=== PATIENT | male | born 1950 | race Hispanic/Latino ===

== ENCOUNTER 2020-06-03 05:57 | Inpatient (IN) | payer BC, MEDICARE ==
[2020-06-03] MEDS ORDERED: Dexamethasone 10 MG/ML VIAL ONE (06:36)
[2020-06-03 07:09] LABS: ALT (SGPT) 86 U/L (8-55); AST (SGOT) 30 U/L (5-34); Albumin 3.2 g/dL (3.4-4.8); Alkaline Phosphatase 72 U/L (40-110); Anion Gap 15 mmol/L (10-20); BUN (Urea Nitrogen) 20 mg/dL (8.4-25.7); Bilirubin, Total 0.7 mg/dL (0.2-1.2); Calc. Creatinine Clearance 0 mL/min (70-130); Calcium 8.5 mg/dL (7.8-10.44); Carbon Dioxide 22 mmol/L (23-31); Chloride 102 mmol/L (98-107); Globulin 3.6 g/dL (2.4-3.5); Glucose 122 mg/dL (80-115); Potassium 4.2 mmol/L (3.5-5.1); Protein, Total 6.8 g/dL (5.8-8.1); Sodium 135 mmol/L (136-145)
[2020-06-03 07:17] LABS: #Eosinphils 0.1 thou/uL (0.0-0.7); #Lymphocytes 1.7 thou/uL (1.20-3.40); #Monocytes 1.2 thou/uL (0.11-0.59); #Neutrophils 7.3 thou/uL (1.40-6.50); %Basophils 0.1 % (0.0-1.0); %Eosinophils 1.1 % (0.0-10.0); %Lymphocytes 16.5 % (21.0-51.0); %Monocytes 11.9 % (0.0-10.0); %Neutrophils 70.5 % (42.0-75.0); Hemoglobin 15.7 g/dL (14.0-18.0); Mean Corpuscular HGB CONC 32.3 g/dL (32.0-36.0); Mean Corpuscular Hemoglobin 27.4 pg (27.0-31.0); Mean Corpuscular Volume 84.9 fL (78.0-98.0); Mean Platelet Volume 7.6 fL (7.4-10.4); Platelet Count 543 thou/uL (130-400); RBC Distribution Width 12.2 % (11.5-14.5); Red Blood Cell (RBC) Count 5.71 mill/uL (4.70-6.10); White Blood Cell (WBC) Count 10.4 thou/uL (4.8-10.8)
[2020-06-03] MEDS ORDERED: Senokot S 8.6-50 MG TAB PO PRN (08:03)
--- NOTE | 2020-06-03 08:12 | CT ---
CT ANGIOGRAM THORAX WITH CONTRAST: (CTA pulmonary angiogram) DATE: 06/03/2020 HISTORY: 69-year-old COVID-19 positive male with dyspnea and hypoxemia TECHNIQUE: IV injection of iodinated contrast. Scan acquisition timing attempted to coincide with iodinated contrast bolus reaching maximal density in pulmonary arteries. 3-D MIP reconstructions. FINDINGS: Numerous multifocal patchy infiltrates both centrally and peripherally throughout bilateral upper lob es, lower lobes, and right middle lobe, mostly consolidative. No pleural effusion or pneumothorax. No cardiomegaly or pericardial effusion. Tortuosity and ectasia of thoracic aorta. Not enough contrast in the aorta to evaluate for aortic dis section. Very good opacification of pulmonary arteries. No thrombus identified in pulmonary arteries. Scattered minimally enlarged mediastinal lymph nodes. IMPRESSION: 1) moderately severe multifocal patchy infiltrates throughout all lung zones: Evidence for pneumonia, possibly COVID-19 pneumonia. 2) no evidence of pulmonary thromboembolism.
[2020-06-03] MEDS ORDERED: Enoxaparin Sodium 40 MG/0.4 ML SYRINGE SC SCH (09:00)
--- NOTE | 2020-06-03 10:06 | RAD ---
CHEST 1 VIEW: Date: 06/03/2020 INDICATION: Shortness of breath. History of COVID-positive diagnosis. COMPARISON: Prior exam dated 10/11/2017. FINDINGS: There is air space opacity within both lungs suspicious for pneumonia. No pleural effusion or pneumot horax is evident. No acute osseous abnormality is evident. Heart size is normal appearing. IMPRESSION: Bilateral pneumonia. POS: BH
--- NOTE | 2020-06-03 10:25 | PDOC.HHP ---
Hospitalist HPI - History of Present Illness Dyspnea History of Present Illness: 69M presents to the ED for acute dyspnea when he got up to use the bathroom. Reports having covid-19 symptoms for about 10 days but was just tested 2 days ago and was positive. Was initially hypoxic when he arrived to the ED, with 02 sats in the upper 80's. Currently 94% on 2L NC. Was worked up in the ED for a PE which CTA was negative for PE but showed bilateral pneumonia, most likely covid related. Will be admitted to medical for further management. ED Course: Ferritin: 2314, CRP 8.07, platelet 543, NA 135, ALT 85... otherwise labs WNL; CTA with multifocal infiltrates throughout lung zones. Hospitalist ROS - Review of Systems Constitutional: reports: chills, malaise Eyes: denies: pain, vision change, conjunctivae inflammation, eyelid inflammation, redness, other ENT: denies: ear pain, ear discharge, nose pain, nose discharge, nose congestion, mouth pain, mouth swelling, throat pain, throat swelling, other Respiratory: reports: cough, shortness of breath, SOB with excertion Cardiovascular: denies: chest pain, palpitations, orthopnea, paroxysmal noc. dyspnea, edema, light headedness, other Gastrointestinal: reports: nausea Genitourinary: denies: dysuria, frequency, incontinence, hematuria, retention, other Musculoskeletal: denies: neck pain, shoulder pain, arm pain, back pain, hand pain, leg pain, foot pain, other Skin: denies: rash, lesions, donny, bruising, other Neurological: denies: weakness, numbness, incoordination, change in speech, confusion, seizures, other - Medication Medications: Losartan 25mg po daily Zofran 4mg po q8h PRN Hospitalist History - Past Medical History Cardiac: reports: HTN - Social History Smoking Status: Never smoker Alcohol: reports: None Drugs: reports: none Living Situation: With Family Activity level: independent ambulation - Exam General Appearance: NAD, awake alert Eye: PERRL, anicteric sclera ENT: normocephalic atraumatic Neck: supple, no JVD Heart: RRR, normal peripheral pulses Respiratory: normal chest expansion Respiratory - other findings: decreased breath sounds bilaterally Gastrointestinal: soft, non-tender Extremities: no cyanosis, no clubbing Skin: normal turgor Neurological: cranial nerve grossly intact Musculoskeletal: normal tone Psychiatric: normal affect, A&O x 3 Hospitalist Results - Labs Result Diagrams: 06/03/20 06:23 06/03/20 06:23 Lab results: WBC 10.4 thou/uL (4.8-10.8) 06/03/20 06:23 Hgb 15.7 g/dL (14.0-18.0) 06/03/20 06:23 Hct 48.5 % (42.0-52.0) 06/03/20 06:23 MCV 84.9 fL (78.0-98.0) 06/03/20 06:23 Plt Count 543 thou/uL (130-400) H 06/03/20 06:23 Neutrophils % 70.5 % (42.0-75.0) 06/03/20 06:23 Sodium 135 mmol/L (136-145) L 06/03/20 06:23 Potassium 4.2 mmol/L (3.5-5.1) 06/03/20 06:23 Chloride 102 mmol/L (98-107) 06/03/20 06:23 Carbon Dioxide 22 mmol/L (23-31) L 06/03/20 06:23 BUN 20 mg/dL (8.4-25.7) 06/03/20 06:23 Creatinine 0.86 mg/dL (0.7-1.3) 06/03/20 06:23 Glucose 122 mg/dL (80-115) H 06/03/20 06:23 Calcium 8.5 mg/dL (7.8-10.44) 06/03/20 06:23 Total Bilirubin 0.7 mg/dL (0.2-1.2) 06/03/20 06:23 AST 30 U/L (5-34) 06/03/20 06:23 ALT 86 U/L (8-55) H 06/03/20 06:23 Alkaline Phosphatase 72 U/L (40-110) 06/03/20 06:23 Troponin I 0.018 ng/mL (< 0.028) 06/03/20 06:23 C-Reactive Protein 8.07 mg/dL (= or < 0.5) H 06/03/20 06:23 Serum Total Protein 6.8 g/dL (5.8-8.1) 06/03/20 06:23 Albumin 3.2 g/dL (3.4-4.8) L 06/03/20 06:23 Hospitalist H&P A/P - Problem (1) COVID-19 determined by clinical diagnostic criteria Code(s): U07.1 - COVID-19 Status: Acute (2) Pneumonia due to 2019 novel coronavirus Code(s): U07.1 - COVID-19; J12.89 - OTHER VIRAL PNEUMONIA Status: Acute (3) Hypertension Code(s): I10 - ESSENTIAL (PRIMARY) HYPERTENSION Status: Acute (4) MARTINEZ (dyspnea on exertion) Code(s): R06.00 - DYSPNEA, UNSPECIFIED Status: Acute - Plan Plan: #Covid 19 Pneumonia Supplemental O2 as needed to keep Sats above 92% Decadron po 6mg daily Albuterol inhaler q4h as needed Remdesivir per pharmacy Lovenox 40mg BID #HTN - will restart home medications once reconciled BP is currently 125/87 DVT prevention with Lovenox; PUD prevention with pepcid 20mg bid Case discussed with Dr. Chan; agrees with plan.
[2020-06-03] MEDS ORDERED: Iopamidol-370 76% 500 ML 1 ML ONE (12:46)
[2020-06-03 17:10] VITALS: BMI 35.2
[2020-06-03] MEDS ORDERED: Albuterol 200 PUFF (6.7GM INHALER) INH PRN (17:56)
[2020-06-03] MEDS: Famotidine 20 MG TAB PO SCH ×2 (17:59→19:43)
[2020-06-03] MEDS ORDERED: REMDESIVIR (EUA) 200 MG in Sodium Chloride 0.9% 250 ML 210 ML IV SCH (18:00)
[2020-06-03 18:35] LABS: Bilirubin Negative (Negative); Blood, Urine Negative (Negative); Clarity Clear (Clear); Glucose, Urine (Dipstick) 30 mg/dL (Negative); Ketone, Urine Negative (Negative); Leukocyte Negative Leu/uL (Negative); Nitrite Negative (Negative); Protein, Urine (Dipstick) Negative (Neg-Trace); Specific Gravity, Urine 1.031 (1.002-1.036); Urobilinogen Normal mg/dL (Less than 2); pH, Urine 5.5 (5.0-9.0)
[2020-06-03] MEDS: Enoxaparin Sodium 40 MG/0.4 ML SYRINGE SC SCH (19:43)
[2020-06-04 06:42] LABS: #Lymphocytes 1.8 thou/uL (1.20-3.40); #Monocytes 1.4 thou/uL (0.11-0.59); #Neutrophils 8.2 thou/uL (1.40-6.50); %Basophils 0.2 % (0.0-1.0); %Eosinophils 0.4 % (0.0-10.0); %Lymphocytes 15.6 % (21.0-51.0); %Monocytes 11.9 % (0.0-10.0); %Neutrophils 71.9 % (42.0-75.0); Hemoglobin 14.6 g/dL (14.0-18.0); Mean Corpuscular HGB CONC 32.6 g/dL (32.0-36.0); Mean Corpuscular Hemoglobin 27.8 pg (27.0-31.0); Mean Corpuscular Volume 85.3 fL (78.0-98.0); Mean Platelet Volume 7.4 fL (7.4-10.4); Platelet Count 572 thou/uL (130-400); RBC Distribution Width 12.1 % (11.5-14.5); Red Blood Cell (RBC) Count 5.26 mill/uL (4.70-6.10); White Blood Cell (WBC) Count 11.4 thou/uL (4.8-10.8)
[2020-06-04 07:13] LABS: ALT (SGPT) 78 U/L (8-55); AST (SGOT) 33 U/L (5-34); Alkaline Phosphatase 69 U/L (40-110); Anion Gap 15 mmol/L (10-20); BUN (Urea Nitrogen) 21 mg/dL (8.4-25.7); Bilirubin, Total 0.5 mg/dL (0.2-1.2); Calc. Creatinine Clearance 139 mL/min (70-130); Calcium 8.2 mg/dL (7.8-10.44); Carbon Dioxide 22 mmol/L (23-31); Chloride 103 mmol/L (98-107); Globulin 3.3 g/dL (2.4-3.5); Glucose 141 mg/dL (80-115); Potassium 4.1 mmol/L (3.5-5.1); Protein, Total 6.3 g/dL (5.8-8.1); Sodium 136 mmol/L (136-145)
[2020-06-04] MEDS ORDERED: Dexamethasone 4 MG TAB PO SCH (08:00)
[2020-06-04] MEDS: Famotidine 20 MG TAB PO SCH ×2 (08:33→20:47)
[2020-06-04] MEDS: Enoxaparin Sodium 40 MG/0.4 ML SYRINGE SC SCH ×2 (08:34→20:47)
[2020-06-04] MEDS ORDERED: guaiFENesin ER 600 MG TAB PO SCH (13:15)
--- NOTE | 2020-06-04 17:06 | PDOC.HOSPP ---
- Subjective Encounter Date: 06/04/20 Encounter Time: 11:30 Subjective: pt up in bed no complains - Objective Vital Signs & Weight: Vital Signs (12 hours) Temp Pulse Resp BP Pulse Ox 06/04/20 12:45 97.5 F L 62 16 122/70 96 06/04/20 08:40 97.9 F 56 L 20 122/80 96 06/04/20 08:00 96 06/04/20 07:48 97.8 F 54 L 18 123/79 97 Weight Weight 238 lb 1.588 oz I&O: 06/03/20 06/04/20 06/05/20 06:59 06:59 06:59 Intake Total 980 Output Total 850 Balance 130 Result Diagrams: 06/04/20 06:07 06/04/20 06:07 Hospitalist ROS - Review of Systems Respiratory: denies: cough, dry, shortness of breath, hemoptysis, SOB with exc ertion, pleuritic pain, sputum, wheezing, other Cardiovascular: denies: chest pain, palpitations, orthopnea, paroxysmal noc. dyspnea, edema, light headedness, other Gastrointestinal: denies: nausea, vomiting, abdominal pain, diarrhea, constipation, melena, hematochezia, other - Medication Medications: Active Medications Generic Name Dose Route Start Last Admin Trade Name Freq PRN Reason Stop Dose Admin Enoxaparin Sodium 40 mg 06/03/20 21:00 06/04/20 08:34 Enoxaparin Sodium 40 Mg/0.4 Ml Syringe SC 40 mg 0900,2100 KJ Administration Famotidine 20 mg 06/03/20 09:00 06/04/20 08:33 Famotidine 20 Mg Tab PO 20 mg BID KJ Administration - Exam Heart: negative: RRR, no murmur, no gallops, no rubs, normal peripheral pulses, irregular, diminshed peripheral pulses, murmur present, II/IV, III/IV Respiratory: negative: CTAB, no wheezes, no rales, no ronchi, normal chest expansion, no tachypnea, normal percussion, rales, rhonchi, tachypneic, wheezes Gastrointestinal: negative: soft, non-tender, non-distended, normal bowel sounds, no palpable masses, no hepatomegaly, no splenomegaly, no bruit, no guarding, no rigidity, tender to palpation, distended, diminished bowl sounds, voluntary guarding Extremities: negative: no cyanosis, no clubbing, no edema, 1+ LE edema, 2+ LE edema, clubbing Hosp A/P (1) COVID-19 determined by clinical diagnostic criteria Code(s): U07.1 - COVID-19 Status: Acute (2) MARTINEZ (dyspnea on exertion) Code(s): R06.00 - DYSPNEA, UNSPECIFIED Status: Acute (3) Hypertension Code(s): I10 - ESSENTIAL (PRIMARY) HYPERTENSION Status: Acute (4) Pneumonia due to 2019 novel coronavirus Code(s): U07.1 - COVID-19; J12.89 - OTHER VIRAL PNEUMONIA Status: Acute - Plan Patient was in [place] and [place] on 30 May. He was started on remdesivir here in the hospital. He is on 1 to 2 L on nasal cannula. We will continue bravo roids and DVT prophylaxis. Will check inflammatory markers every other day
[2020-06-04] MEDS: REMDESIVIR (EUA) 100 MG in Sodium Chloride 0.9% 250 ML 230 ML IV SCH (18:18)
[2020-06-04] MEDS: guaiFENesin ER 600 MG TAB PO SCH (20:48)
[2020-06-04] MEDS ORDERED: ZALEPLON 10 MG PO SCH (21:00)
[2020-06-05 06:35] LABS: ALT (SGPT) 76 U/L (8-55); AST (SGOT) 25 U/L (5-34); Albumin 3.1 g/dL (3.4-4.8); Alkaline Phosphatase 69 U/L (40-110); Bilirubin, Direct 0.3 mg/dL (0.1-0.3); Bilirubin, Total 0.7 mg/dL (0.2-1.2); Protein, Total 6.4 g/dL (5.8-8.1)
[2020-06-05] MEDS ORDERED: Dexamethasone 20 MG/5 ML VIAL SLOW IVP SCH (09:00)
[2020-06-05] MEDS: Famotidine 20 MG TAB PO SCH ×2 (09:39→21:25)
[2020-06-05] MEDS: Losartan 25 MG TAB PO SCH (09:39)
[2020-06-05] MEDS: guaiFENesin ER 600 MG TAB PO SCH ×2 (09:39→21:26)
[2020-06-05] MEDS: Dexamethasone 4 mg/ml Vial SLOW IVP SCH (09:39)
[2020-06-05] MEDS: Enoxaparin Sodium 40 MG/0.4 ML SYRINGE SC SCH ×2 (09:40→21:25)
--- NOTE | 2020-06-05 14:30 | PDOC.HOSPP ---
- Subjective Encounter Date: 06/05/20 Encounter Time: 11:20 Subjective: pt up in bed no complains - Objective Vital Signs & Weight: Vital Signs (12 hours) Temp Pulse Resp BP Pulse Ox 06/05/20 08:00 98.0 F 59 L 16 122/75 96 Weight Weight 238 lb 1.588 oz I&O: 06/04/20 06/05/20 06/06/20 06:59 06:59 06:59 Intake Total 980 820 240 Output Total 850 625 Balance 130 195 240 Result Diagrams: 06/04/20 06:07 06/04/20 06:07 Hospitalist ROS - Review of Systems Cardiovascular: denies: chest pain, palpitations, orthopnea, paroxysmal noc. dyspnea, edema, light headedness, other Gastrointestinal: denies: nausea, vomiting, abdominal pain, diarrhea, constipation, melena, hematochezia, other Genitourinary: denies: dysuria, frequency, incontinence, hematuria, retention, other - Medication Medications: Active Medications Generic Name Dose Route Start Last Admin Trade Name Dionne PRN Reason Stop Dose Admin Dexamethasone 6 mg 06/05/20 09:00 06/05/20 09:39 Dexamethasone 4 Mg/Ml Vial SLOW IVP 6 mg DAILY KJ Administration Enoxaparin Sodium 40 mg 06/03/20 21:00 06/05/20 09:40 Enoxaparin Sodium 40 Mg/0.4 Ml Syringe SC 40 mg 0900,2100 KJ Administration Famotidine 20 mg 06/03/20 09:00 06/05/20 09:39 Famotidine 20 Mg Tab PO 20 mg BID KJ Administration Guaifenesin 1,200 mg 06/04/20 21:00 06/05/20 09:39 Guaifenesin Er 600 Mg Tab PO 1,200 mg Q12HR KJ Administration Remdesivir 100 mg/ Sodium 250 mls @ 250 mls/hr 06/04/20 18:00 06/04/20 18:18 Chloride IV 06/07/20 18:59 250 mls 1800 KJ Administration Losartan Potassium 25 mg 06/05/20 09:00 06/05/20 09:39 Losartan 25 Mg Tab PO 25 mg DAILY KJ Administration - Exam Neck: negative: supple, symmetric, no JVD, no thyromegaly, no lymphadenopathy, no carotid bruit, JVD Heart: negative: RRR, no murmur, no gallops, no rubs, normal peripheral pulses, irregular, diminshed peripheral pulses, murmur present, II/IV, III/IV Respiratory: negative: CTAB, no wheezes, no rales, no ronchi, normal chest expansion, no tachypnea, normal percussion, rales, rhonchi, tachypneic, wheezes Gastrointestinal: negative: soft, non-tender, non-distended, normal bowel sounds, no palpable masses, no hepatomegaly, no splenomegaly, no bruit, no guarding, no rigidity, tender to palpation, distended, diminished bowl sounds, voluntary guarding Hosp A/P (1) COVID-19 determined by clinical diagnostic criteria Code(s): U07.1 - COVID-19 Status: Acute (2) MARTINEZ (dyspnea on exertion) Code(s): R06.00 - DYSPNEA, UNSPECIFIED Status: Acute (3) Hypertension Code(s): I10 - ESSENTIAL (PRIMARY) HYPERTENSION Status: Acute (4) Pneumonia due to 2019 novel coronavirus Code(s): U07.1 - COVID-19; J12.89 - OTHER VIRAL PNEUMONIA Status: Acute - Plan Patient was in [place] and [place] on 30 May. He was started on remdesivir here in the hospital. He is on 1 to 2 L on nasal cannula. We will continue steroids and DVT prophylaxis. Will check inflammatory markers every other day 06/05 patient remdesivir will be done on the . We will continue current steroids. Check inflammatory markers. Patient DVT prophylaxis.
[2020-06-05] MEDS: Benzonatate 100 MG CAP PO PRN ×2 (14:49→21:26)
[2020-06-05] MEDS: Acetaminophen 325 MG TAB PO PRN ×2 (14:49→21:26)
[2020-06-05] MEDS: REMDESIVIR (EUA) 100 MG in Sodium Chloride 0.9% 250 ML 230 ML IV SCH (18:24)
[2020-06-06 06:56] LABS: ALT (SGPT) 77 U/L (8-55); AST (SGOT) 24 U/L (5-34); Albumin 3.2 g/dL (3.4-4.8); Alkaline Phosphatase 67 U/L (40-110); Bilirubin, Direct 0.3 mg/dL (0.1-0.3); Bilirubin, Total 0.8 mg/dL (0.2-1.2); Protein, Total 6.3 g/dL (5.8-8.1)
[2020-06-06] MEDS: Losartan 25 MG TAB PO SCH (08:15)
[2020-06-06] MEDS: guaiFENesin ER 600 MG TAB PO SCH ×2 (08:15→20:34)
[2020-06-06] MEDS: Benzonatate 100 MG CAP PO PRN ×2 (08:15→17:47)
[2020-06-06] MEDS: Famotidine 20 MG TAB PO SCH ×2 (08:15→20:34)
[2020-06-06] MEDS: Dexamethasone 4 mg/ml Vial SLOW IVP SCH (08:16)
[2020-06-06] MEDS: Enoxaparin Sodium 40 MG/0.4 ML SYRINGE SC SCH ×2 (08:16→20:35)
[2020-06-06] MEDS ORDERED: Diabetic Tussin 200 MG/10 ML UDCUP PO PRN (14:19)
--- NOTE | 2020-06-06 14:33 | PDOC.HOSPP ---
- Subjective Encounter Date: 06/06/20 Encounter Time: 12:30 Subjective: pt up in bed no complains - Objective Vital Signs & Weight: Vital Signs (12 hours) Temp Pulse Resp BP Pulse Ox 06/06/20 08:00 97.9 F 96 06/06/20 07:47 97.9 F 53 L 18 125/81 96 Weight Weight 238 lb 1.588 oz I&O: 06/05/20 06/06/20 06/07/20 06:59 06:59 06:59 Intake Total 820 1820 240 Output Total 625 Balance 195 1820 240 Result Diagrams: 06/04/20 06:07 06/04/20 06:07 Hospitalist ROS - Review of Systems Respiratory: reports: cough Cardiovascular: denies: chest pain, palpitations, orthopnea, paroxysmal noc. dyspnea, edema, light headedness, other Gastrointestinal: denies: nausea, vomiting, abdominal pain, diarrhea, constipation, melena, hematochezia, other - Medication Medications: Active Medications Generic Name Dose Route Start Last Admin Trade Name Freq PRN Reason Stop Dose Admin Acetaminophen 650 mg 06/03/20 08:03 06/05/20 21:26 Acetaminophen 325 Mg Tab PO 650 mg Q4H PRN Administration Headache/Fever/Mild Pain (1-3) Benzonatate 100 mg 06/04/20 09:24 06/06/20 08:15 Benzonatate 100 Mg Cap PO 100 mg TID PRN Administration Cough Dexamethasone 6 mg 06/05/20 09:00 06/06/20 08:16 Dexamethasone 4 Mg/Ml Vial SLOW IVP 6 mg DAILY KJ Administration Enoxaparin Sodium 40 mg 06/03/20 21:00 06/06/20 08:16 Enoxaparin Sodium 40 Mg/0.4 Ml Syringe SC 40 mg 0900,2100 KJ Administration Famotidine 20 mg 06/03/20 09:00 06/06/20 08:15 Famotidine 20 Mg Tab PO 20 mg BID KJ Administration Guaifenesin 1,200 mg 06/04/20 21:00 06/06/20 08:15 Guaifenesin Er 600 Mg Tab PO 1,200 mg Q12HR KJ Administration Remdesivir 100 mg/ Sodium 250 mls @ 250 mls/hr 06/04/20 18:00 06/05/20 18:24 Chloride IV 06/07/20 18:59 250 mls 1800 KJ Administration Losartan Potassium 25 mg 06/05/20 09:00 06/06/20 08:15 Losartan 25 Mg Tab PO 25 mg DAILY KJ Administration - Exam Heart: negative: RRR, no murmur, no gallops, no rubs, normal peripheral pulses, irregular, diminshed peripheral pulses, murmur present, II/IV, III/IV Respiratory: negative: CTAB, no wheezes, no rales, no ronchi, normal chest expansion, no tachypnea, normal percussion, rales, rhonchi, tachypneic, wheezes Gastrointestinal: negative: soft, non-tender, non-distended, normal bowel sounds, no palpable masses, no hepatomegaly, no splenomegaly, no bruit, no guarding, no rigidity, tender to palpation, distended, diminished bowl sounds, voluntary guarding Extremities: negative: no cyanosis, no clubbing, no edema, 1+ LE edema, 2+ LE edema, clubbing Hosp A/P (1) COVID-19 determined by clinical diagnostic criteria Code(s): U07.1 - COVID-19 Status: Acute (2) MARTINEZ (dyspnea on exertion) Code(s): R06.00 - DYSPNEA, UNSPECIFIED Status: Acute (3) Hypertension Code(s): I10 - ESSENTIAL (PRIMARY) HYPERTENSION Status: Acute (4) Pneumonia due to 2019 novel coronavirus Code(s): U07.1 - COVID-19; J12.89 - OTHER VIRAL PNEUMONIA Status: Acute - Plan Patient was in [facility] on 30 May. He was started on remdesivir here in the hospital. He is on 1 to 2 L on nasal cannula. We will continue steroids and DVT prophylaxis. Will check inflammatory markers every other day 06/05 patient remdesivir will be done on the . We will continue current steroids. Check inflammatory markers. Patient DVT prophylaxis. 06/06 pt on remdesivir [place] will be last day. will continue steroids.
[2020-06-06] MEDS: REMDESIVIR (EUA) 100 MG in Sodium Chloride 0.9% 250 ML 230 ML IV SCH (17:42)
[2020-06-06] MEDS: Acetaminophen 325 MG TAB PO PRN (17:46)
[2020-06-07 06:50] LABS: ALT (SGPT) 72 U/L (8-55); AST (SGOT) 25 U/L (5-34); Albumin 3.4 g/dL (3.4-4.8); Alkaline Phosphatase 68 U/L (40-110); Anion Gap 16 mmol/L (10-20); BUN (Urea Nitrogen) 25 mg/dL (8.4-25.7); Bilirubin, Direct 0.3 mg/dL (0.1-0.3); Bilirubin, Total 0.9 mg/dL (0.2-1.2); Calc. Creatinine Clearance 134 mL/min (70-130); Calcium 8.7 mg/dL (7.8-10.44); Carbon Dioxide 21 mmol/L (23-31); Chloride 103 mmol/L (98-107); Globulin 3.3 g/dL (2.4-3.5); Glucose 116 mg/dL (80-115); Protein, Total 6.7 g/dL (5.8-8.1); Sodium 136 mmol/L (136-145)
[2020-06-07] MEDS: Enoxaparin Sodium 40 MG/0.4 ML SYRINGE SC SCH (08:19)
[2020-06-07] MEDS: guaiFENesin ER 600 MG TAB PO SCH (08:19)
[2020-06-07] MEDS: Losartan 25 MG TAB PO SCH (08:20)
[2020-06-07] MEDS: Dexamethasone 4 mg/ml Vial SLOW IVP SCH (08:20)
[2020-06-07] MEDS: Famotidine 20 MG TAB PO SCH (08:20)
[2020-06-07] MEDS: REMDESIVIR (EUA) 100 MG in Sodium Chloride 0.9% 250 ML 230 ML IV SCH (13:22)
--- NOTE | 2020-06-07 14:18 | PDOC.DS.DS ---
Provider - Provider Date of Admission: 06/03/20 07:14 Date of Discharge: 06/07/20 Admitting Provider: Stiven Alexander MD Primary Care Physician: Kenn Tapia MD Course - Hospital Course Hospital Course: Patient is a very pleasant 69-year-old male who initially presented to the hospital with shortness of breath. Patient was diagnosed with Covid pneumonia. He was started on remdesivir and on steroids. He continued to improve the hospital stay and did not require any oxygen on discharge. pt will be discharged home follow-up with his primary. - Labs Lab Results: 06/04/20 06:07 06/07/20 06:00 Abnormal Lab Results - Last 48 hrs 06/06/20 05:58: ALT 77 H, Albumin 3.2 L 06/07/20 06:00: Carbon Dioxide 21 L, ALT 72 H, Albumin/Globulin Ratio 1.0 L 06/07/20 06:00: C-Reactive Protein 1.19 H 06/07/20 06:00: Ferritin 1274.05 H - Physical Exam Vitals: Vital Signs (12 hours) Temp Pulse Resp BP BP Pulse Ox 06/07/20 11:36 66 20 106/70 94 L 06/07/20 08:29 95 06/07/20 07:34 97.8 F 50 L 18 111/75 95 Weight Weight 238 lb 1.588 oz Physical Exam: The patient was seen and examined on the day of discharge. Problem - Problem (1) COVID-19 determined by clinical diagnostic criteria Code(s): U07.1 - COVID-19 Status: Acute (2) MARTINEZ (dyspnea on exertion) Code(s): R06.00 - DYSPNEA, UNSPECIFIED Status: Acute (3) Hypertension Code(s): I10 - ESSENTIAL (PRIMARY) HYPERTENSION Status: Acute (4) Pneumonia due to 2019 novel coronavirus Code(s): U07.1 - COVID-19; J12.89 - OTHER VIRAL PNEUMONIA Status: Acute Plan - Discharge Medications Prescriptions: Aspirin 325 mg PO DAILY #10 tab Dexamethasone [Decadron] 6 mg PO DAILY #5 tablet Albuterol Sulfate [Proventil Hfa] 2 puff INH [id number] PRN #1 aer PRN Reason: Wheezing Home Medications: Medication Instructions Recorded Confirmed Type Benzonatate 100 mg PO TID PRN 06/03/20 06/03/20 History Losartan [Cozaar] 25 mg PO DAILY 06/03/20 06/03/20 History Ondansetron [Ondansetron ODT] 4 mg PO Q8HR PRN 06/03/20 06/03/20 History Zaleplon 10 mg PO HS 06/03/20 06/03/20 History Albuterol Sulfate [Proventil Hfa] 2 puff INH [id number] PRN #1 aer 06/07/20 Rx Aspirin 325 mg PO DAILY #10 tab 06/07/20 Rx Dexamethasone [Decadron] 6 mg PO DAILY #5 tablet 06/07/20 Rx Allergies: No Known Allergies Allergy (Verified 06/03/20 17:26) - Discharge Instructions Discharge Instructions:: please take steroids with food. TAKE ONLY THE ONE I HAVE PRESCRIBED TO YOU. fol low up with your primary care doctor. Activity:: Activity as Tolerated Nourishment:: Heart Healthy Diet - Follow up Plan Referrals: Kenn Tapia MD [Primary Care Provider] - Disposition: HOME Quality - Care Measures CORE MEASURES:: N/A
[2020-06-07 15:40] VITALS: BP 100/65; TEMP 97.4
--- NOTE | 2020-06-08 09:31 | PQF ---
CLINICAL DOCUMENTATION CLARIFICATION FORM: Dear Dr. Joanna Chan Date: 06-08-20 Please exercise your independent, professional judgment in responding to the clarification form. Clinical indicators are provided on the bottom of this form for your review. Please check appropriate box(es): [x ] Acute Hypoxia Respiratory Failure [ ] Hypoxia without Respiratory Failure [ ] Other diagnosis [ ] Unable to determine In addition, please specify: Present on Admission (POA): [ x ] Yes [ ] No [ ] Unable to determine For continuity of documentation, please document condition throughout progress notes and discharge summary. Thank You. To be completed by CDI/Coding staff for physician review: CLINICAL INDICATORS - SIGNS / SYMPTOMS / LABS / RESULTS AND LOCATION IN ED: COVID PNA; HYPOXIA *P 54-62 *RR 19-23 *T 98.1 ORAL *O2 92-94 2-3LNC *DX W/ COVID 2 days ago * EMS States SAT 85% on RA *got up to go to restroom and felt SOB. *tonight he developed acutely worsening SOB and was unable to sleep because he was so short of breath. H&P ([place]): Dyspnea on exertion; RISK FACTORS / RESULTS AND LOCATION IN H&P ([place]): COVID-19; PNA TREATMENTS / RESULTS AND LOCATION IN ED: *Oxygen 2-3L NC *Dexamethasone IV H&P ([place]): *supplemental O2 as needed to keep Sats above 92% *Decadron PO 6mg daily *Albuterol inhaler Q4h as needed *Remdesivir per pharmacy Acute Respiratory Failure: ABG pH < 7.35 or > 7.45; Decreased oxygen saturation (<90% room air or < 95% on oxygen); PCO2 > 50 mm Hg; PO2 < 60 mm Hg; Labored or rapid respirations ARDS: Dx Criteria [[place] ARDS]: Respiratory symptoms within one week of a known clinical insult (e.g. shock, infection, surgery, trauma) Bilateral opacities in CXR/Chest CT not due to CHF or fluid CDS Signature: Tonya Willingham RN, CCDS Phone #: [phone] [email or web address] This is a permanent part of the Medical Record [facility]
== END 2020-06-07 15:53 | disposition home or self-care (01) | DRG 177 ==
LOC: ERS 05:57 → ERHOLD 07:14 → T4-A 15:47
PROVIDERS: ADMIT Student in an Organized Health Care Education/Training Program; ATTEND Student in an Organized Health Care Education/Training Program
PROC: XW033E5 Introduction of Remdesivir Anti-infective into Peripheral Vein, Percutaneous Approach, New Technology Group 5 (ICD-10-PCS; principal; 2020-06-03)
DX: U07.1 COVID-19 (principal); J12.89 Other viral pneumonia; J96.01 Acute respiratory failure with hypoxia; Z79.899 Other long term (current) drug therapy; Z88.0 Allergy status to penicillin; I10 Essential (primary) hypertension
CPT/HCPCS: 36415; 71045; 71275; 80053; 80076; 81003; 82728; 84484; 85025; 86140; 96374; J1100; J1650; J7050; J8540; Q9967

== ENCOUNTER 2020-11-26 05:57 | Emergency (ER) | payer BC, MEDICARE ==
[2020-11-26] MEDS ORDERED: Diazepam 5 MG TAB ONE (07:41)
== END 2020-11-26 08:23 ==
LOC: ERS 05:57
DX: S16.1XXA Strain of muscle, fascia and tendon at neck level, initial encounter (principal); E11.9 Type 2 diabetes mellitus without complications; I10 Essential (primary) hypertension; Z79.899 Other long term (current) drug therapy; X58.XXXA Exposure to other specified factors, initial encounter
CPT/HCPCS: 99283